=== PATIENT | female | born 1995 | race Hispanic/Latino ===

== ENCOUNTER 2023-02-06 17:56 | Emergency (ER) | payer SELFPAY ==
[2023-02-06 18:31] LABS: Absolute Lymphocytes (CBC) 1.4 K/uL (0.7-4.9); Hematocrit 37.6 % (36.0-45.0); Lymphocytes % 9.3 % (15.3-44.8); MCV 78.2 fL (80-100); MPV 8.5 fL (7.6-11.3); Platelets 290 thou/uL (152-406); RBC Red Blood Cell Count 4.81 M/uL (3.86-4.86)
[2023-02-06 18:39] LABS: Urine Bacteria <20 /HPF (<20); Urine Bilirubin NEGATIVE (Negative); Urine Blood Negative (Negative); Urine Clarity Turbid (Clear); Urine Color Light-Yellow (Yellow); Urine Glucose NEGATIVE (Negative); Urine Mucus Slight /HPF (None Seen); Urine Protein 1+ (Negative); Urine Urobilinogen Normal (Normal); Urine WBC Clump Rare /HPF (None Seen)
[2023-02-06 18:41] LABS: Protime INR 1.19
[2023-02-06] MEDS ORDERED: ACETAMINOPHEN 500 MG TAB ONE (18:55)
[2023-02-06] MEDS ORDERED: NA CHLORIDE 0.9% 1,000 ML ONE (18:55)
[2023-02-06] MEDS ORDERED: CEFTRIAXONE 2000 MG/VIAL ONE (18:55)
[2023-02-06] MEDS ORDERED: NA CHLORIDE 0.9% 100 ML ONE (18:55)
[2023-02-06] MEDS ORDERED: CEFEPIME 2 GM VIAL ONE (18:57)
[2023-02-06 18:58] LABS: Albumin 3.7 g/dL (3.4-5.0); Bilirubin Total 0.4 mg/dL (0.2-1.0); Potassium 3.2 mEq/L (3.5-5.1); Protein, Total 9.4 g/dL (6.4-8.2)
--- NOTE | 2023-02-06 19:20 | RAD REPORT ---
EXAM DESCRIPTION: RAD - Chest Single View - 02/06/2023 6:30 pm CLINICAL HISTORY: FEVER Chest pain. COMPARISON: No comparisons FINDINGS: Portable technique limits examination quality. The lungs are grossly clear. The heart is normal in size. No displaced fractures. IMPRESSION: No acute intrathoracic process suspected.
[2023-02-06] MEDS ORDERED: KETOROLAC 30 MG/ML INJ ONE (19:27)
--- NOTE | 2023-02-06 19:28 | RAD REPORT ---
EXAM DESCRIPTION: CTAbdomen Pelvis W Contrast - 02/06/2023 7:19 pm CLINICAL HISTORY: Abdominal pain. ABD PAIN COMPARISON: No comparisons TECHNIQUE: Biphasic CT imaging of the abdomen and pelvis was performed with 100 ml non-ionic IV cont rast. All CT scans are performed using dose optimization technique as appropriate and may include automated exposure control or mA/KV adjustment according to patient size. FINDINGS: The lung bases are clear. The liver, spleen, pancreas, adrenal glands and kidneys are within normal limits. No bowel obstruction, free air, free fluid or abscess. Moderate fecal retention. The appendix is norm al. No evidence of significant lymphadenopathy. No suspicious bony findings. IMPRESSION: No acute intra-abdominal or pelvic finding.
[2023-02-06 20:34] LABS: SARS-CoV-2 Antigen Rapid Res Negative (Negative)
--- NOTE | 2023-02-06 20:53 | ER ---
Nurse's Notes [facility] Name: Rebecca Romo Age: 27 yrs Sex: Female : 1995 Arrival Date: 02/06/2023 Time: 17:56 Bed 20 Private MD: Diagnosis: Fever, unspecified Presentation: 02/06 18:00 Initial Sepsis Screen: Does the patient meet any 2 criteria? RR > 20 per min. HR > 90 aa5 bpm. Yes Does the patient have a suspected source of infection? Yes:. 18:00 Acuity: ISAIAH 2 aa5 18:00 Chief complaint: Patient states: fever and body aches since Sunday. Pt reports aa5 nausea/vomiting that began today. Coronavirus screen: fever. Ebola Screen: Patient denies travel to an Ebola-affected area in the 21 days before illness onset. Risk Assessment: Do you want to hurt yourself or someone else? Patient reports no desire to harm self or others. Onset of symptoms was February 2023. 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 - Social history:: Smoking status: Patient denies any tobacco usage or history of. - Family history:: not pertinent. Screenin:16 [facility] ED Fall Risk Assessment (Adult) History of falling in the last 3 months, cm10 including since admission No falls in past 3 months (0 pts) Confusion or Disorientation No (0 pts) Intoxicated or Sedated No (0 pts) Impaired Gait No (0 pts) Mobility Assist Device Used No (0 pt) Altered Elimination No (0 pt) Score/Fall Risk Level 0 - 2 = Low Risk Oriented to surroundings, Maintained a safe environment, Hourly rounding (assess needs \T\ fall precautionary measures) done. Abuse screen: Denies threats or abuse. Denies injuries from another. Nutritional screening: No deficits noted. Tuberculosis screening: No symptoms or risk factors identified. Assessment: 19:14 General: Appears in no apparent distress. comfortable, Behavior is calm, cooperative. cm10 Pain: Complains of pain in right low back Pain radiates to right leg and left leg. Neuro: No deficits noted. Level of Consciousness is awake, alert, obeys commands, Oriented to person, place, time, situation. Respiratory: No deficits noted. Airway is patent Respiratory effort is even, unlabored, Respiratory pattern is regular, symmetrical. GI: Abdomen is flat, Bowel sounds present X 4 quads. Abd is soft. GI: Reports nausea, vomiting. : No deficits noted. No signs and/or symptoms were reported regarding the genitourinary system. Vital Signs: 18:00 BP 138 / 95; Pulse 138; Resp 29 S; Temp 103.2(O); Pulse Ox 100% on R/A; Weight 65 kg aa5 (R); 19:19 BP 121 / 77; Pulse 114; Resp 19; Temp 102.2(O); Pulse Ox 100% ; Pain 8/10; jj7 20:15 BP 130 / 74; Pulse 107; Resp 20; Temp 99.8; Pulse Ox 99% ; Pain 0/10; jj7 19:19 Pain Scale: Adult jj7 20:15 Pain Scale: Adult jj7 ED Course: 17:58 Patient arrived in ED. mg5 17:59 Martin Cardoza MD is Attending Physician. rt 18:01 Arm band placed on Patient placed in an exam room, on a stretcher. ll1 18:06 Mayra Suarez, RN is Primary Nurse. cm10 18:08 Triage completed. aa5 18:20 Initial lab(s) drawn, by va, sent to lab. First set of blood cultures drawn by va. cm10 18:24 PREGU Sent. cm10 18:24 CBC with Diff Sent. cm10 18:24 CMP Sent. cm10 18:24 Lactate w/ 2H reflex if indic. Sent. cm10 18:24 Protime (+inr) Sent. cm10 18:24 Ptt, Activated Sent. cm10 18:24 Urinalysis w/ reflexes Sent. cm10 18:24 Inserted saline lock: 18 gauge in right antecubital area, using aseptic technique. cm10 Blood collected. 18:30 Second set of blood cultures drawn by va. tm3 18:32 Chest Single View XRAY In Process Unspecified. EDMS 19:16 Patient has correct armband on for positive identification. Placed in gown. Bed in low cm10 position. Call light in reach. Side rails up X2. Provided Education on: ER Process and procedures.. 19:16 Client placed on continuous cardiac and pulse oximetry monitoring. NIBP monitoring cm10 applied. 19:20 CT Abd/Pelvis - IV Contrast Only In Process Unspecified. EDMS 20:06 SARS RAPID Sent. jj7 20:06 Influenza Screen (a \T\ B) Sent. jj7 21:32 No provider procedures requiring assistance completed. IV discontinued, intact, cm10 bleeding controlled, No redness/swelling at site. Pressure dressing applied. Administered Medications: 18:51 Drug: Acetaminophen PO 1000 mg PO once Route: PO; cm10 18:51 Drug: NS 0.9% IV 1000 ml IV at 1 bolus Per protocol; 1000 mL bolus Route: IV; Rate: 1 cm10 bolus; Site: right antecubital; 18:51 Drug: Cefepime IVPB 2 grams IVPB at 200 ml/hr once over 30 mins; (mix in NS 100 mL) cm10 Route: IVPB; Rate: 200 ml/hr; Infused Over: 30 mins; Site: right antecubital; 19:10 Follow up: IV Status: Completed infusion jj7 19:29 Drug: Ketorolac IVP 30 mg IVP once Route: IVP; Site: right antecubital; jj7 20:00 CANCELLED (error): influenza virus vaccine0.5 ml IM once; Provide the Vaccine rt Information Statement (VIS). Medication: 19:16 VIS not applicable for this client. cm10 Outcome: 20:52 Discharge ordered by MD. rt 21:33 Discharged to home ambulatory, with friend, [place] 21:33 Condition: good 21:33 Discharge instructions given to patient, Instructed on discharge instructions, follow up and referral plans. medication usage, Demonstrated understanding of instructions, follow-up care, medications, Prescriptions given X 1, 21:33 Patient left the ED. cm10 Signatures: Dispatcher [employer] [facility] Francis Rivas 3 Ophelia Duval, RN RN aa5 Ezekiel Brannon RN RN ll1 Zack Knox RN RN jj7 Martin Cardoza MD MD rt Mayra Suarez RN RN cm10 Julia Simeon mg5
--- NOTE | 2023-02-06 20:53 | EDPHYS ---
Physician Documentation [facility] Name: Rebecca Romo Age: 27 yrs Sex: Female : 1995 Arrival Date: 02/06/2023 Time: 17:56 Bed 20 Private MD: ED Physician Martin Cardoza HPI: 02/06 20:11 This 27 yrs old Female presents to ER via Ambulatory with complaints of Fever, rt Nausea/Vomiting. 20:11 Patient presents to the ED with nausea, vomiting. She reports a fever, generalized body rt aches. She states her pain has worsened today along with the fever. Symptoms are moderate in severity. Denies other acute complaints at this time.. 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 - Social history:: Smoking status: Patient denies any tobacco usage or history of. - Family history:: not pertinent. ROS: 20:11 Cardiovascular: Negative for chest pain, palpitations, and edema, Respiratory: Negative rt for shortness of breath, cough, wheezing, and pleuritic chest pain, MS/Extremity: Negative for injury and deformity, Skin: Negative for injury, rash, and discoloration, Neuro: Negative for headache, weakness, numbness, tingling, and seizure, Psych: Negative for depression, anxiety, suicide ideation, homicidal ideation, and hallucinations, 20:11 Constitutional: Positive for body aches, chills, fever, 20:11 Abdomen/GI: Positive for abdominal pain, nausea and vomiting, Exam: 20:11 Constitutional: This is a well developed, well nourished patient who is awake, alert, rt and in no acute distress. Head/Face: Normocephalic, atraumatic. Chest/axilla: Normal chest wall appearance and motion. Nontender with no deformity. No lesions are appreciated. Cardiovascular: Regular rate and rhythm with a normal S1 and S2. No gallops, murmurs, or rubs. Normal PMI, no JVD. No pulse deficits. Respiratory: Lungs have equal breath sounds bilaterally, clear to auscultation and percussion. No rales, rhonchi or wheezes noted. No increased work of breathing, no retractions or nasal flaring. Skin: Warm, dry with normal turgor. Normal color with no rashes, no lesions, and no evidence of cellulitis. MS/ Extremity: Pulses equal, no cyanosis. Neurovascular intact. Full, normal range of motion. Neuro: Awake and alert, GCS 15, oriented to person, place, time, and situation. Cranial nerves II-XII grossly intact. Motor strength 5/5 in all extremities. Sensory grossly intact. Cerebellar exam normal. Normal gait. Psych: Awake, alert, with orientation to person, place and time. Behavior, mood, and affect are within normal limits. 20:11 ECG was reviewed by the Attending Physician. 20:11 Abdomen/GI: Mild tenderness diffusely without rebound, guarding, distention, Vital Signs: 18:00 BP 138 / 95; Pulse 138; Resp 29 S; Temp 103.2(O); Pulse Ox 100% on R/A; Weight 65 kg aa5 (R); 19:19 BP 121 / 77; Pulse 114; Resp 19; Temp 102.2(O); Pulse Ox 100% ; Pain 8/10; jj7 20:15 BP 130 / 74; Pulse 107; Resp 20; Temp 99.8; Pulse Ox 99% ; Pain 0/10; jj7 19:19 Pain Scale: Adult jj7 20:15 Pain Scale: Adult jj7 MDM: 18:06 Patient medically screened. rt 20:53 Differential diagnosis: viral Infection, bacterial infection, URI, pneumonia UTI. Data rt reviewed: vital signs, nurses notes, lab test result(s), EKG, radiologic studies. Consideration of Admission/Observation Escalation of care including admission/observation considered. Consideration was given to sepsis, possibly due to UTI despite lack of bacteriuria, she did have leukocytosis, tachypnea, tachycardia with associated fever. Her tachycardia has improved not completely resolved with IV fluids, antipyretics. I did recommend to the patient that she be admitted pending cultures and for further IV antibiotics. Patient states that she strongly does not wish to be discharged. I did explain to the patient the risks of worsening condition if she does have a bacteremia or sepsis. Patient understands risks of leaving and still wishes to leave. She does have decisional making capacity. We will continue to treat the patient with antibiotics, she states that she will return immediately if she has worsening of her condition or if she changes her mind regarding admission.. I considered the following discharge prescriptions or medication management in the emergency department Medications were administered in the Emergency Department. See MAR. Independent interpretation of the following test(s) in the Emergency Department CT Scan: My interpretation is No kidney stones in interpretation of CT scan images. Counseling: I had a detailed discussion with the patient and/or guardian regarding the historical points, exam findings, and any diagnostic results supporting the discharge/admit diagnosis, lab results, radiology results, the need for further work-up and treatment in the hospital. Response to treatment: the patient's symptoms have markedly improved after treatment. 02/06 18:11 Order name: Blood Culture Adult (2) rt 02/06 18:11 Order name: CBC with Diff; Complete Time: 19:06 rt 02/06 18:11 Order name: CMP; Complete Time: 19:06 rt 02/06 18:11 Order name: Lactate w/ 2H reflex if indic.; Complete Time: 19:06 rt 02/06 18:11 Order name: Protime (+inr); Complete Time: 19:06 rt 02/06 18:11 Order name: Ptt, Activated; Complete Time: 19:06 rt 02/06 18:11 Order name: Urinalysis w/ reflexes; Complete Time: 19:06 rt 02/06 18:11 Order name: PREGU; Complete Time: 19:06 rt 02/06 18:43 Order name: Urine Culture EDMS 02/06 19:42 Order name: SARS RAPID; Complete Time: 20:40 rt 02/06 20:00 Order name: Influenza Screen (a \T\ B) rt 02/06 18:11 Order name: Chest Single View XRAY; Complete Time: 19:32 rt 02/06 18:11 Order name: CT Abd/Pelvis - IV Contrast Only; Complete Time: 19:32 rt 02/06 18:11 Order name: EKG; Complete Time: 18:13 rt 02/06 18:11 Order name: Cardiac monitoring; Complete Time: 18:51 rt 02/06 18:11 Order name: EKG - Nurse/Tech; Complete Time: 18:51 rt 02/06 18:11 Order name: IV Saline Lock - Large Bore; Complete Time: 18:31 rt 02/06 18:11 Order name: Labs collected and sent; Complete Time: : rt 02/06 18:11 Order name: O2 Per Protocol; Complete Time: : rt 02/06 18:11 Order name: O2 Sat Monitoring; Complete Time: : rt 02/06 18:11 Order name: Vital Signs; Complete Time: 18:31 rt EC:11 Rate is 122 beats/min. Rhythm is regular, Normal Sinus Rhythm with No ectopy. Right rt axis deviation noted. [place] interval is normal. QRS interval is normal. QT interval is normal. No Q waves. T waves are Normal. No ST changes noted. Administered Medications: 18:51 Drug: Acetaminophen PO 1000 mg PO once Route: PO; cm10 18:51 Drug: NS 0.9% IV 1000 ml IV at 1 bolus Per protocol; 1000 mL bolus Route: IV; Rate: 1 cm10 bolus; Site: right antecubital; 18:51 Drug: Cefepime IVPB 2 grams IVPB at 200 ml/hr once over 30 mins; (mix in NS 100 mL) cm10 Route: IVPB; Rate: 200 ml/hr; Infused Over: 30 mins; Site: right antecubital; 19:10 Follow up: IV Status: Completed infusion jj7 19:29 Drug: Ketorolac IVP 30 mg IVP once Route: IVP; Site: right antecubital; jj7 20:00 CANCELLED (error): influenza virus vaccine0.5 ml IM once; Provide the Vaccine rt Information Statement (VIS). Disposition Summary: 02/06/23 20:52 Discharge Ordered Notes: Location: Home rt Problem: new rt Symptoms: have improved rt Condition: Stable rt Diagnosis - Fever, unspecified rt Followup: rt - With: Private Physician - When: 2 - 3 days - Reason: Followup: rt - With: Emergency Department - When: - Reason: Worsening of condition, Recheck today's complaints Discharge Instructions: - Discharge Summary Sheet rt - Fever, Adult rt Forms: - Medication Reconciliation Form rt - Thank You Letter rt - Antibiotic Education rt - Prescription Opioid Use rt - Patient Portal Instructions rt - Leadership Thank You Letter rt Prescriptions: - cefpodoxime 200 mg Oral tablet - take 1 tablet ORAL route every 12 hours with food; 14 tablet; Refills: 0, rt Product Selection Permitted Signatures: Dispatcher [employer] Ophelia Castañeda RN RN aa5 Zack Knox RN RN jj7 Martin Cardoza MD MD rt Mayra Suarez RN RN cm10 Corrections: (The following items were deleted from the chart) 18:51 18:11 Accucheck ordered. rt cm10 20:00 19:42 Influenza Virus Vaccine IM 0.5 ml IM once; Provide the Vaccine Information rt Statement (VIS). ordered. rt
[2023-02-06 21:41] VITALS: BP 130/74; TEMP 99.8; O2SAT 99
--- NOTE | 2023-02-07 16:38 | EKG ---
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
== END 2023-02-06 21:33 | disposition home or self-care (01) ==
LOC: ER 17:56
DX: R50.9 Fever, unspecified (principal); R11.2 Nausea with vomiting, unspecified; Z20.822 Contact with and (suspected) exposure to COVID-19
CPT/HCPCS: 36415; 71045; 74177; 80053; 81001; 81025; 83605; 85025; 85610; 85730; 87040; 87086; 87088; 87804; 87811; 93005; 96365; 96375; 99284; J0692; J0696; J7030; Q9967